=== PATIENT | female | born 1980 | race Caucasian/White ===

== ENCOUNTER → 2023-06-12 10:31 | Outpatient (REF) | payer OTHER, SELFPAY | LOC: HWRAD 10:31 | PROVIDERS: ATTENDING PHYSICIAN Nurse Practitioner | DX: R22.9 Localized swelling, mass and lump, unspecified (principal) | CPT/HCPCS: 73130 ==

== ENCOUNTER → 2025-02-26 09:42 | Outpatient (REF) | payer OTHER, SELFPAY | LOC: HWWDC 09:42 | DX: Z12.31 Encounter for screening mammogram for malignant neoplasm of breast (principal) | CPT/HCPCS: 77063; 77067 ==